=== PATIENT | female | born 1940 | race Caucasian/White ===

== ENCOUNTER 2016-10-19 12:31 | Inpatient (IN) | payer MEDICARE, OTHER ==
[~2016-10-19] VITALS: Ht 152.4 cm; Wt 68.4 kg
[~2016-10-19 12:31] MED LIST: ABILIFY10 MG PO; ABILIFY5 MG PO; ADVAIR DISK1 INH; ASPIRIN EC81 MG PO; ASPIRIN LOW DOS81 M2 PO; CLARITIN-D1 TA2 PO; CYMBALTA60 MG PO; DILAUDID 2MG2 MG/TA1 PO; HYDROCHLOROT12.5 MG PO; KEFLEX250 MG PO; KLONOPIN1 MG PO; LEVOTHYROXIN50 MCG PO; LORTAB 10-325 M1 TAB PO; LORTAB 5 PO; LYRICA50 MG PO; METO50TA52 PO; NITROSTAT0.4 MG SL; NORVASC PO; PRAVASTATIN10 MG PO; PRAVASTATIN20 MG PO; PROTONIX40 M2 PO; RECLAST5 MG/100 M IV; SEROQUEL50 MG OR; SEROQUEL50 MG PO; SPIRIVA RE2.5 MCG/AC IN; VENTOLIN HFA IN; WELLBUTRIN X1 PO; XANAX0.5 MG PO; [UNRECOGNIZED DRUG - CODE] PO; [UNRECOGNIZED DRUG - REMARK]
[2016-10-19 13:11] LABS: HEMATOCRIT 47.9 % (37.0-47.0); HEMOGLOBIN 15.3 g/dl (12.0-16.0); IMMATURE GRANULOCYTES 0.3 % (0.0-1.0); MEAN CELL VOLUME 100.6 fL CALC (80.0-100.0); MEAN CORPUSCULAR HGB 32.1 pG CALC (26.0-32.0); MEAN CORPUSCULAR HGB CONC 31.9 g/L CALC (32.0-36.0); NEUT# 13.59 thou/uL (2.00-7.15); RED BLOOD COUNT 4.76 mill/uL (4.20-5.60); RED CELL DISTRI WIDTH 14.6 % (11.5-15.5)
[2016-10-19 13:26] LABS: PROTHROMBIN TIME 10.8 SECONDS (9.0-12.5)
[2016-10-19 13:27] LABS: ALBUMIN 4.3 g/dL (3.2-5.0); BILIRUBIN, TOTAL 0.8 mg/dL (0.0-1.4); CREATININE 1.6 mg/dL (0.5-1.0); TOTAL PROTEIN 7.1 g/dL (6.3-8.2)
[2016-10-19 13:33] LABS: POTASSIUM 5.6 mmol/l (3.5-5.1)
[2016-10-19] MEDS ORDERED: PERCOCET1 TA2 PO (13:48)
[2016-10-19] MEDS ORDERED: LISINOPRIL10 M1 PO (13:58)
[2016-10-19] MEDS ORDERED: METRONIDAZOL500 MG PO (15:11)
[2016-10-19 15:23] LABS: URINE BLOOD DIPSTICK SMALL (NEGATIVE); URINE CLARITY CLEAR; URINE COLOR YELLOW; URINE GLUCOSE - DIPSTICK NEGATIVE (NEGATIVE); URINE KETONE 40 mg/dL (NEGATIVE); URINE LEUK ESTERASE NEGATIVE (NEGATIVE); URINE NITRITE - DIPSTICK NEGATIVE (Negative); URINE PH 6.5 (4.5-8.0); URINE PROTEIN - DIPSTICK 100 mg/dL (NEG-TRACE); URINE UROBILINOGEN - DIPSTICK 0.2 E.U./dL (0.2)
[2016-10-19 15:31] LABS: URINE BILIRUBIN - DIPSTICK SMALL (NEGATIVE)
[2016-10-19 15:33] LABS: BARBITURATES NEGATIVE (NEGATIVE); COCAINE NEGATIVE (NEGATIVE); METHADONE NEGATIVE (NEGATIVE); OXCYCODONE POSITIVE (NEGATIVE); TETRAHYDROCANNABIONOL NEGATIVE (NEGATIVE); TRICYLIC ANTIDEPRESSANTS NEGATIVE (NEGATIVE); URINE SQUAMOUS EPITHELIAL CELL FEW EPI/hpf (0-FEW)
[2016-10-19 18:00] VITALS: BP 160/89
[2016-10-19 23:54] VITALS: BP 146/78
[2016-10-20 04:12] VITALS: BP 152/81
[2016-10-20 05:34] LABS: HEMATOCRIT 44.4 % (37.0-47.0); HEMOGLOBIN 14.5 g/dl (12.0-16.0); IMMATURE GRANULOCYTES 0.7 % (0.0-1.0); MEAN CELL VOLUME 100.2 fL CALC (80.0-100.0); MEAN CORPUSCULAR HGB 32.7 pG CALC (26.0-32.0); MEAN CORPUSCULAR HGB CONC 32.7 g/L CALC (32.0-36.0); NEUT# 8.92 thou/uL (2.00-7.15); RED BLOOD COUNT 4.43 mill/uL (4.20-5.60); RED CELL DISTRI WIDTH 14.6 % (11.5-15.5)
[2016-10-20 05:46] LABS: ALBUMIN 3.6 g/dL (3.2-5.0); BILIRUBIN, TOTAL 0.7 mg/dL (0.0-1.4); CALCIUM 8.3 mg/dL (8.4-10.2); CREATININE 1.5 mg/dL (0.5-1.0); POTASSIUM 4.9 mmol/l (3.5-5.1); TOTAL PROTEIN 6.2 g/dL (6.3-8.2)
[2016-10-20 08:02] VITALS: BP 141/85
[2016-10-20 16:00] VITALS: BP 143/84
[2016-10-20 19:20] VITALS: BP 143/81
[2016-10-20 23:43] VITALS: BP 152/76
[2016-10-21 03:54] VITALS: BP 148/75
[2016-10-21 06:28] LABS: CALCIUM 8.6 mg/dL (8.4-10.2); CREATININE 1.4 mg/dL (0.5-1.0); POTASSIUM 4.8 mmol/l (3.5-5.1)
[2016-10-21 06:32] LABS: HEMATOCRIT 45.8 % (37.0-47.0); HEMOGLOBIN 15.8 g/dl (12.0-16.0); MEAN CELL VOLUME 100.7 fL CALC (80.0-100.0); MEAN CORPUSCULAR HGB 34.7 pG CALC (26.0-32.0); MEAN CORPUSCULAR HGB CONC 34.5 g/L CALC (32.0-36.0); RED BLOOD COUNT 4.55 mill/uL (4.20-5.60)
[2016-10-21 06:33] LABS: LYMPH% 13 % (15-41); MONO% 11 % (2-13); NEUT% 76 % (42-76); PLATELET COUNT 215 thou/uL (130-400); RED CELL DISTRI WIDTH 15.7 % (11.5-15.5)
[2016-10-21 08:18] VITALS: BP 140/83
[2016-10-21 12:30] VITALS: BP 138/84
[2016-10-21 16:00] VITALS: BP 143/75
[2016-10-21 20:16] VITALS: BP 146/82
[2016-10-21 23:36] VITALS: BP 146/84
[2016-10-22 04:25] VITALS: BP 151/83
[2016-10-22 08:09] VITALS: BP 134/68
[2016-10-22 09:07] LABS: CALCIUM 7.7 mg/dL (8.4-10.2); CREATININE 1.4 mg/dL (0.5-1.0)
[2016-10-22 11:13] VITALS: BP 136/72
[2016-10-22 14:34] VITALS: BP 140/75
[2016-10-22 21:01] VITALS: BP 133/76
[2016-10-23] VITALS (7 sets, daily range): BP systolic 120–143; BP diastolic 61–75
[2016-10-23 05:54] LABS: CALCIUM 7.3 mg/dL (8.4-10.2); CREATININE 1.3 mg/dL (0.5-1.0); POTASSIUM 4.1 mmol/l (3.5-5.1)
[2016-10-23 05:56] LABS: HEMATOCRIT 43.2 % (37.0-47.0); HEMOGLOBIN 14.1 g/dl (12.0-16.0); IMMATURE GRANULOCYTES 0.4 % (0.0-1.0); MEAN CELL VOLUME 98.9 fL CALC (80.0-100.0); MEAN CORPUSCULAR HGB 32.3 pG CALC (26.0-32.0); MEAN CORPUSCULAR HGB CONC 32.6 g/L CALC (32.0-36.0); NEUT# 7.15 thou/uL (2.00-7.15); RED BLOOD COUNT 4.37 mill/uL (4.20-5.60); RED CELL DISTRI WIDTH 14.6 % (11.5-15.5)
[2016-10-24 05:31] LABS: HEMATOCRIT 42.3 % (37.0-47.0); HEMOGLOBIN 13.8 g/dl (12.0-16.0); IMMATURE GRANULOCYTES 0.5 % (0.0-1.0); MEAN CELL VOLUME 99.1 fL CALC (80.0-100.0); MEAN CORPUSCULAR HGB 32.3 pG CALC (26.0-32.0); MEAN CORPUSCULAR HGB CONC 32.6 g/L CALC (32.0-36.0); NEUT# 7.3 thou/uL (2.00-7.15); RED BLOOD COUNT 4.27 mill/uL (4.20-5.60); RED CELL DISTRI WIDTH 14.6 % (11.5-15.5)
[2016-10-24 05:34] LABS: CALCIUM 7.2 mg/dL (8.4-10.2); CREATININE 1.3 mg/dL (0.5-1.0)
[2016-10-24 07:35] VITALS: BP 138/73
[2016-10-24] MEDS ORDERED: FLORASTOR250 M1 PO (11:20)
[2016-10-24] MEDS ORDERED: LOPRESSOR 550 MG/TAB PO (11:20)
[2016-10-24] MEDS ORDERED: VALTREX1 GM PO (11:38)
[2016-10-24 12:00] VITALS: BP 131/81
[2016-10-28 17:21] LABS: VARICELLA-ZOSTER IgG AB_i 321.4 Index (>=165.00)
== END 2016-10-24 16:04 | disposition home health service (06) | DRG 98 ==
LOC: ENPENDDIS → ED 12:31 → ED-I 16:55 → ED 17:19 → MS2 17:20
PROVIDERS: Emergency Medicine; Internal Medicine; Nurse Practitioner Family; ADMIT Internal Medicine; ATTEND Internal Medicine
PROC: 0T9B70Z Drainage of Bladder with Drainage Device, Via Natural or Artificial Opening (ICD-10-PCS; principal; 2016-10-19)
DX: B10.09 Other human herpesvirus encephalitis (principal); G93.1 Anoxic brain damage, not elsewhere classified; J96.11 Chronic respiratory failure with hypoxia; M62.82 Rhabdomyolysis; J44.9 Chronic obstructive pulmonary disease, unspecified; Z99.81 Dependence on supplemental oxygen; C67.9 Malignant neoplasm of bladder, unspecified; B00.2 Herpesviral gingivostomatitis and pharyngotonsillitis; I10 Essential (primary) hypertension; E03.9 Hypothyroidism, unspecified; M79.7 Fibromyalgia; G25.81 Restless legs syndrome; G89.29 Other chronic pain; M54.9 Dorsalgia, unspecified; Z98.84 Bariatric surgery status; F17.210 Nicotine dependence, cigarettes, uncomplicated; Z90.5 Acquired absence of kidney; F41.9 Anxiety disorder, unspecified; Z85.528 Personal history of other malignant neoplasm of kidney
CPT/HCPCS: G0378; J0133

== ENCOUNTER 2016-12-08 00:08 | Inpatient (IN) | payer MEDICARE, OTHER ==
[2016-12-08] VITALS (23 sets, daily range): BP systolic 86–143; BP diastolic 45–77
[~2016-12-08] VITALS: Ht 152.4 cm; Wt 64.0 kg
[~2016-12-08 00:08] MED LIST changes: +FLORASTOR250 M1 PO; +LISINOPRIL10 M1 PO; +LOPRESSOR 550 MG/TAB PO; +METRONIDAZOL500 MG PO; +PERCOCET1 TA2 PO; +VALTREX1 GM PO
--- NOTE | 2016-12-08 00:09 | NUR ---
PT WHEELED STRAIGHT BACK TO ROOM 8 AND TRIAGED. PT HAS WHEEZING AND RONCHI DIMINISHED BASES. PT HAS 02 ON FROM HOME AT 5 L BUT PT WEARS 4L NORMALLY. DAUGHTER UPPED ON WAY TO ER.
--- NOTE | 2016-12-08 00:10 | NUR ---
PT TO RM 10 VIA W/C.
--- NOTE | 2016-12-08 00:52 | NUR ---
PLACED OM BIPAP AFTER THE ABG RESULT.
[2016-12-08 00:56] LABS: HEMATOCRIT 47.3 % (37.0-47.0); HEMOGLOBIN 14.6 g/dl (12.0-16.0); IMMATURE GRANULOCYTES 0.5 % (0.0-1.0); MEAN CELL VOLUME 106.3 fL CALC (80.0-100.0); MEAN CORPUSCULAR HGB 32.8 pG CALC (26.0-32.0); MEAN CORPUSCULAR HGB CONC 30.9 g/L CALC (32.0-36.0); NEUT# 14.87 thou/uL (2.00-7.15); RED BLOOD COUNT 4.45 mill/uL (4.20-5.60); RED CELL DISTRI WIDTH 14.7 % (11.5-15.5)
--- NOTE | 2016-12-08 01:00 | NUR ---
PT ON BIPAP, SAT IMPROVING. DAUGHTER AT BEDSIDE. WAITING ON TEST RESULTS
[2016-12-08 01:10] LABS: URINE BILIRUBIN - DIPSTICK NEGATIVE (NEGATIVE); URINE BLOOD DIPSTICK NEGATIVE (NEGATIVE); URINE CLARITY CLEAR; URINE COLOR YELLOW; URINE GLUCOSE - DIPSTICK NEGATIVE (NEGATIVE); URINE KETONE NEGATIVE (NEGATIVE); URINE LEUK ESTERASE NEGATIVE (NEGATIVE); URINE NITRITE - DIPSTICK NEGATIVE (Negative); URINE PH 5.5 (4.5-8.0); URINE PROTEIN - DIPSTICK NEGATIVE (NEG-TRACE); URINE SPECIFIC GRAVITY 1.015; URINE UROBILINOGEN - DIPSTICK 0.2 E.U./dL (0.2)
[2016-12-08 01:15] LABS: ALBUMIN 4.4 g/dL (3.2-5.0); ALKALINE PHOSPHATASE 89 u/l (38-126); BILIRUBIN, TOTAL 0.6 mg/dL (0.0-1.4); BUN 38 mg/dL (8-23); BUN/CREATININE RATIO 21 (12-20 (CALC)); CALCIUM 8.5 mg/dL (8.4-10.2); CARBON DIOXIDE 20 mmol/l (22-30); CHLORIDE 104 mmol/l (95-108); CREATININE 1.8 mg/dL (0.5-1.0); GFR 28 ML/MIN (>=60 (CALC)); GFR FOR AFR.AMER. 33 ML/MIN (>=60 (CALC)); GLUCOSE 108 mg/dL (82-115); SGOT/AST 36 u/l (9-36); SGPT/ALT 40 u/l (11-66); SODIUM 138 mmol/l (137-146); TOTAL PROTEIN 7.7 g/dL (6.3-8.2)
[2016-12-08 01:20] LABS: ANION GAP 20 (6-22 (CALC)); POTASSIUM 5.6 mmol/l (3.5-5.1)
[2016-12-08 01:28] LABS: MYOGLOBIN 37 ng/mL (0 - 62)
--- NOTE | 2016-12-08 02:12 | NUR ---
NO REACTION TO ROCEPHIN, ZITHROMAX INFUSING AT THIS TIME. DAUGHTER STILL AT BEDSIDE.
[2016-12-08 02:58] LABS: PROTHROMBIN TIME 10.4 SECONDS (9.0-12.5)
--- NOTE | 2016-12-08 03:11 | NUR ---
ZITHROMAX COMPLETE, NO ADVERSE REACTION NOTED. REPEAT LACTIC ACID NEGATIVE. PT TO BE ADMITTED, WAITING ON ORDERS.
--- NOTE | 2016-12-08 03:32 | NUR ---
ADMIT ORDERS RECEIVED. ICU BUSY AND WILL CALL WHEN ABLE TO TAKE REPORT.
--- NOTE | 2016-12-08 04:00 | NUR ---
PT. NOW ICU PATIENT. PLACED ON ICU INPATIENT BED AT THIS TIME. ICU PROTOCOLS INITIATED AT THIS TIME.
--- NOTE | 2016-12-08 04:19 | NUR ---
PT SWITCHED TO HOSPITAL BED AND GONSALO OAKLEY STARTING ADMISSION PAPERS. PT'S TEMP 101.3 PT JUST GIVEN MORPHINE 2MG FOR CHRONIC BACK PAIN. WILL MONITOR TEMP.
--- NOTE | 2016-12-08 06:31 | NUR ---
PT. RESTING ON LT. SIDE. BIPAP REMAINS IN PLACE AT THIS TIME. SPO2 IS 91% ON 04/22 40%. RATE OF 14. HR STABLE, SINUS AT 69. BP SLIGHTLY HYPOTENSIVE AT 96 SYSTOLIC. MD MADE AWARE, NEW ORDERS RECEIVED.
--- NOTE | 2016-12-08 07:00 | NUR ---
REPORT RECEIVED FROM SIENNA. PT BEDRESTING WITH BIPAP IN USE. RECEIVING FLUID BOLUS-TOLERATING WELL. DAUGHTER AT BEDSIDE.
--- NOTE | 2016-12-08 07:17 | NUR ---
report called to GONSALO Betnon
--- NOTE | 2016-12-08 07:27 | NUR ---
TO MS2 VIA STRETCHER. ALERT. SLING IN PLACE ON LEFT ARM. HL IN TACT. N/C AT THIS TIME.
--- NOTE | 2016-12-08 07:30 | NUR ---
TO ICU VIA BED WITH ASSIST OF RT. TOLERATED WELL
--- NOTE | 2016-12-08 07:47 | NUR ---
PT ARRIVED TO FLOOR VIA BED ACCOMPANIED BY ED STAFF X 2. BIPAP SET UP BY RT JUSTIN. PT DRWOSY, BUT AROUSABLE. NS BOLUS INFUSING IN #20 LFA, BP 98/52, HR 71. DAUGHTER AT BEDSIDE. PLAN OF CARE DISCUSSED. WITH PT'S DAUGHTER. WILL CONTINUE TO MONITOR.
--- NOTE | 2016-12-08 09:00 | NUR ---
DR. HAWKINS IN TO SEE PT. PLAN OF CARE DISCUSSED WITH PT'S DAUGHTER AT BEDSIDE. PT SLEEPING.
--- NOTE | 2016-12-08 11:47 | NUR ---
PT SLEEPING AT THIS TIME. DAUGHTER ON PHONE TO BE UPDATED ON CONDITION, NOTIFIED OF NO CHANGE.
--- NOTE | 2016-12-08 13:00 | NUR ---
REPORT RECEIVED FROM GONSALO GRAVES. PT RESTING WITH EYES CLOSED, BIPAP IN PLACE SPO2 IS >92% BP IS 84/56. SR ON MONITOR. IV PATENT, INFUSING NS @100CC/H. COYLE CATHETER TO GRAVITY. CALL LIGHT WITHIN REACH. PT IS RESTING WITH EYES CLOSED. WILL CONTINUE TO MONITOR.
--- NOTE | 2016-12-08 14:00 | NUR ---
PT IS UNCHANGED SINCE PREVIOUS NOTE. VSS. WILL CONTINUE TO MONITOR.
--- NOTE | 2016-12-08 16:14 | NUR ---
PT REMAINS UNCHANGED FROM PRIOR NOTES. VSS, CALL LIGHT WITHIN REACH. WILL CONTINUE TO MONITOR.
--- NOTE | 2016-12-08 17:15 | NUR ---
FAMILY AT FOR UPDATE TO PLAN OF CARE. MD AND RT IN ROOM ALSO, PT AROUSABLE AND ALERT. BIPAP REMOVED AT THIS TIME. SP02 REMAINS UNCHANGED AT 95%. WILL CONTINUE TO MONITOR.
--- NOTE | 2016-12-08 18:55 | NUR ---
REPORT FROM GONSALO CHOU. ASSUMED PT. CARE.
--- NOTE | 2016-12-08 19:15 | NUR ---
PT. REPOSITIONED FOR COMFORT. LINENS CHANGED AT THIS TIME. PT. C/O BILATERAL LEG PAIN/CRAMPING. STATES SHE USUALLY TAKES LYRICA FOR THIS PAIN. PT. INFORMED THAT SHE WILL GET LYRICA IN ABOUT AN HOUR OR SO. RT CALLED FOR NEB TREATMENT. PT. AWAKE, ALERT, ORIENTED TO PERSON AND PLACE AT THIS TIME. DENIES COMPLAINTS OTHER THAN JOINT PAIN. WILL MEDICATE ORDERED.
--- NOTE | 2016-12-08 21:16 | NUR ---
RADIOLOGY AT BEDSIDE FOR PORTABLE CHEST.
--- NOTE | 2016-12-08 22:55 | NUR ---
PT. PLACED ON BIPAP AT THIS TIME BY RT THERAPY. PT. DENIES COMPLAINTS OR NEEDS AT THIS TIME. REPOSITIONED TO LT. SIDE FOR COMFORT. PT. VSS. REMAINS WITH SCANT CONGESTED UPPER RESP SOUNDS. CLEAR TO UPPERS BILAT AND SCANT RALES/CRACKLES/DIMINISHED TO BASES BILATERALLY. CALL LIGHT REMAINS WITHIN REACH.
[2016-12-09] VITALS (11 sets, daily range): BP systolic 107–133; BP diastolic 52–86
--- NOTE | 2016-12-09 00:15 | NUR ---
PT. REMOVED FROM BIPAP PER HER REQUEST. PLACED ON 4L NC AT THIS TIME. PROVIDED WITH WATER PER HER REQUEST. RESTING MUCH MORE COMFORTABLY IN BED AFTER REMOVAL FROM THE BIPAP. PT. UPPER RESP CONGESTION CLEARS WELL WITH FORCEFUL COUGHING. REMAINS AFEBRILE AND VSS. CALL LIGHT REMAINS WITHIN REACH AND PT. UTILIZING CALL CARMONA APPROPRIATELY.
--- NOTE | 2016-12-09 03:35 | NUR ---
PT. RESTING ON LT. SIDE IN NO DISTRESS. AROUSABLE TO LIGHT VERBAL STIMULI. DENIES COMPLAINTS OF PAIN OR NEED. MONTIEL. ROMEL. RESPS EVEN AND UNLABORED. SPO2 IS 93% ON 3L NC.
--- NOTE | 2016-12-09 05:15 | NUR ---
LAB AT BEDSIDE AT THIS TIME. ZITHROMAX INFUSING WITHOUT SX OF INFILTRATION OR EXTRAVASATION. MAE. URENA. VSS. WILL CONTINUE TO ASSESS. CALL LIGHT REMAINS WITHIN REACH.
[2016-12-09 05:47] LABS: HEMATOCRIT 33.9 % (37.0-47.0); IMMATURE GRANULOCYTES 0.6 % (0.0-1.0); MEAN CELL VOLUME 101.5 fL CALC (80.0-100.0); MEAN CORPUSCULAR HGB 32.9 pG CALC (26.0-32.0); MEAN CORPUSCULAR HGB CONC 32.4 g/L CALC (32.0-36.0); NEUT# 13.25 thou/uL (2.00-7.15); RED BLOOD COUNT 3.34 mill/uL (4.20-5.60); RED CELL DISTRI WIDTH 14.6 % (11.5-15.5)
[2016-12-09 06:12] LABS: CALCIUM 7.3 mg/dL (8.4-10.2); CREATININE 1.4 mg/dL (0.5-1.0); POTASSIUM 4.2 mmol/l (3.5-5.1)
--- NOTE | 2016-12-09 07:10 | NUR ---
PT LAYING BED RESTING WITH EYES CLOSED, AROUSES EASILY TO VERBAL STIMULI, PERRL, A & O X3, HR, 93, RESP. 20, BP 132/55, O2 95% ON 4L VIA NC, CLEAR LUNG SOUNDS IN RUL & COLE AND CRACKLES RML, RLL & LLL, 20G L FA IV WITH NS ORDERED AT PERSCRIBED RATE, COYLE REMAINS IN PLACE SECURED WITH CATH STRAP, STRONG RADIAL PULSES, WEAK PEDAL PULSES, AM ASSESSMENT COMPLETE, SEE INTERVENTIONS, SAFETY MEASURES REINFORCED, CALL CARMONA WITHIN REACH
--- NOTE | 2016-12-09 07:32 | NUR ---
SETUP ASSISTANCE PROVIDED WITH AM MEAL TRAYasmeen
--- NOTE | 2016-12-09 08:30 | NUR ---
DR HAWKINS AT BEDSIDE DISCUSSING PLAN OF CARE
--- NOTE | 2016-12-09 09:44 | NUR ---
P.T. AT BEDSIDE FOR EVAL
--- NOTE | 2016-12-09 09:46 | NUR ---
PT AMBULATED IN UNIT WITH P.T., TOLERATED WELL, CALL CARMONA WITHIN REACH
--- NOTE | 2016-12-09 11:30 | NUR ---
SETUP ASSISTANCE PROVIDED WITH LUNCH TRAY
--- NOTE | 2016-12-09 12:20 | NUR ---
PT SITTING UP IN BED TALKING TO VISITORS AT BEDSIDE, NO S/S OF DISTRESS, CALL CARMONA WITHIN REACH
--- NOTE | 2016-12-09 14:48 | NUR ---
PT LAYING IN BED RESTING WITH EYES CLOSED, AROUSES EASILY TO VERBAL STIMULI, RESP EVEN AND UNLABORED, REMINDED TO CALL FOR ASSISTANCE, CALL CARMONA WITHIN REACH
--- NOTE | 2016-12-09 16:35 | NUR ---
PT LAYING IN BED RESTING WITH EYES CLOSED, AROUSES EASILY TO VERBAL STIMULI, PT VERBALIZES NO COMPLAINTS, CALL CARMONA WITHIN REACH
--- NOTE | 2016-12-09 20:05 | NUR ---
AWAKE, ALERT, ORIENTED X 3. DAUGHTER AT BEDSIDE AT THIS TIME. SKIN WARM AND DRY. ROMLE. TIANA. HEMOPTYSIS. DR. AVLAREZ NOTIFIED. NEW ORDERS RECEIVED.
--- NOTE | 2016-12-09 20:45 | NUR ---
REPORT TO GONSALO LAURA.
--- NOTE | 2016-12-09 21:22 | NUR ---
PATIENT RECIEVED FROM ICU VIA BED WITH ICU STAFF IN ATTENDANCE. PATIENT IS ALERT AND ORIENTEDX3. PATIENT WITH HOB ELEVATED AND POSITIONED ON LEFT SIDE WITH ASSISTANCE OF PILLOWS, PATIENT WITH O2 VIA NASAL CANNULA IN PLACE AT 4LPM. PATIENT WITH COYLE CATH PATETN AND DRAINING CLEAR YELLOW URINE. PATIENT ORIENTED TO ROOM AND SURROUNDINGS INSTRUCTED PATIENT ON USE OF NURSE CALL LIGHT SYSTEM AND TV REMOTE. CALL LIGHT IN REACH.WILL CONT TO TO MONITOR.
--- NOTE | 2016-12-09 23:00 | NUR ---
IV SITE TO LEFT FOREARM IS LEAKING AT THE SITE. SITE D/C'ED AND NEW IV SITE STARTED TO RIGHT FOREARM-#22 GAUGE WITH GOOD BLOOD RETURN. PATIENT ASSISTED WITH REPOSITIONING. PATIENT MEDICATED WITH XANAX FOR ANXIETY AND SLEEP. PATIENT WITH WET COUGH WITH BLOOD TINGED SPUTUM. SAFETY PRECAUTIONS REINFORCED AND AND CALL LIGHT IN REACH. WILL CONT TO MONITOR.
--- NOTE | 2016-12-10 01:00 | NUR ---
PATIENT C/O FEELING TOO HOT-TEMP ADJUSTED AND FAN PROVIDED. PATIENT C/O LEG CRAMPING AND PAIN. ASKING FOR ANOTHER XANAX0-EXPLAINED THAT SHE JUST RECIEVED XANAX AT 2300 AND THAT IT WAS TOO EARLIER FOR ANOTHER DOSE. PROVIDED WITH WARM PACKS TO LEGS FOR COMFORT. WILL CONT TO MONITOR.
[2016-12-10 04:15] VITALS: BP 125/69
--- NOTE | 2016-12-10 05:00 | NUR ---
PATIENT CONT TO CALL FREQUENTLY ASKING FOR MORE XANAX. MEDICATED WILL XANAX 1MG PO. PATIENT WITH O2 VIA NASAL CANNULA INPLACE AT 4LPM. AZITHROMYCIN INFUSING ORDERED. COYLE PATENT AND DRAINING CLEAR YELLOW URINE. CALL LIGHT IN REACH. WILL CONT TO MONITOR.
[2016-12-10 05:58] LABS: HEMOGLOBIN 10.8 g/dl (12.0-16.0); IMMATURE GRANULOCYTES 1.6 % (0.0-1.0); MEAN CELL VOLUME 102.4 fL CALC (80.0-100.0); MEAN CORPUSCULAR HGB 32.5 pG CALC (26.0-32.0); MEAN CORPUSCULAR HGB CONC 31.8 g/L CALC (32.0-36.0); NEUT# 8.08 thou/uL (2.00-7.15); RED BLOOD COUNT 3.32 mill/uL (4.20-5.60)
[2016-12-10 06:20] LABS: CALCIUM 7.5 mg/dL (8.4-10.2); CREATININE 1.4 mg/dL (0.5-1.0); POTASSIUM 4.4 mmol/l (3.5-5.1)
--- NOTE | 2016-12-10 07:15 | NUR ---
PT RESTING WITH EYES CLOSED ON ROUNDS; NO S/SX OF DISTRESS NOTED; CALL CARMONA WITHIN REACH; WILL CONTINUE TO MONITOR.
[2016-12-10 07:36] VITALS: BP 123/64
--- NOTE | 2016-12-10 11:24 | NUR ---
COYLE REMOVED PER MD ORDER; EMPTIED 300 ML OF CLEAR YELLOW URINE; PT TOLERATED WELL; DENIES PAIN OR DISCOMFORT; CALL CARMONA WITHIN REACH; WILL CONTINUE TO MONITOR.
[2016-12-10] MEDS ORDERED: VANTIN200 M1 PO (13:36)
[2016-12-10] MEDS ORDERED: FLORASTOR250 M1 PO (13:36)
[2016-12-10] MEDS ORDERED: PREDNISONE10 MG PO (13:36)
[2016-12-10] MEDS ORDERED: ZITHROMAX500 MG PO (13:36)
--- NOTE | 2016-12-10 15:02 | NUR ---
Discharge instructions given. Patient verbalizes understanding of same. Discharged in stable condition via Wheelchair to Home with family. All belongings sent with pt.
--- NOTE | 2016-12-10 15:14 | NUR ---
PT REFUSED TO PARTICIPATE IN PHYSICAL THERAPY. STATES TAHT SHE HAD JUST RECEIVED XANAX THIS AM AND WAS STILL DROWSY AND TOO TIRED.
[2016-12-10] MEDS ORDERED: ALBUTEROL SUL0.083 % IN (19:31)
== END 2016-12-10 14:56 | disposition home health service (06) | DRG 189 ==
LOC: ENPENDDIS → ED 00:08 → ED-I 02:42 → ED 03:11 → ICU 03:12 → MS2 12-09 21:00
PROVIDERS: Emergency Medicine; ADMIT Internal Medicine; ATTEND Internal Medicine
PROC: 5A09357 Assistance with Respiratory Ventilation, Less than 24 Consecutive Hours, Continuous Positive Airway Pressure (ICD-10-PCS; principal; 2016-12-08)
PROC: 0T9B70Z Drainage of Bladder with Drainage Device, Via Natural or Artificial Opening (ICD-10-PCS; 2016-12-08)
DX: J96.21 Acute and chronic respiratory failure with hypoxia (principal); J18.9 Pneumonia, unspecified organism; N17.9 Acute kidney failure, unspecified; E87.2 Acidosis; N18.3 Chronic kidney disease, stage 3 (moderate); E87.5 Hyperkalemia; Z99.81 Dependence on supplemental oxygen; J44.1 Chronic obstructive pulmonary disease with (acute) exacerbation; J44.0 Chronic obstructive pulmonary disease with (acute) lower respiratory infection; J96.22 Acute and chronic respiratory failure with hypercapnia; I12.9 Hypertensive chronic kidney disease with stage 1 through stage 4 chronic kidney disease, or unspecified chronic kidney disease; G62.9 Polyneuropathy, unspecified; M19.90 Unspecified osteoarthritis, unspecified site; M79.7 Fibromyalgia; E03.9 Hypothyroidism, unspecified; G25.81 Restless legs syndrome; G89.29 Other chronic pain; M54.9 Dorsalgia, unspecified; Z85.528 Personal history of other malignant neoplasm of kidney; Z85.51 Personal history of malignant neoplasm of bladder; Z87.891 Personal history of nicotine dependence; Z98.84 Bariatric surgery status

== ENCOUNTER 2017-07-21 09:15 | Inpatient (IN) | payer MEDICARE, OTHER ==
[2017-07-21] VITALS (33 sets, daily range): BP systolic 96–180; BP diastolic 40–72
[~2017-07-21] VITALS: Ht 154.9 cm; Wt 75.7 kg
[~2017-07-21 09:15] MED LIST changes: +ALBUTEROL SUL0.083 % IN; +PREDNISONE10 MG PO; +VANTIN200 M1 PO; +ZITHROMAX500 MG PO
[2017-07-21 10:18] LABS: HEMATOCRIT 36.4 % (37.0-47.0); HEMOGLOBIN 11.1 g/dl (12.0-16.0); IMMATURE GRANULOCYTES 3.4 % (0.0-1.0); MEAN CORPUSCULAR HGB 30.5 pG CALC (26.0-32.0); MEAN CORPUSCULAR HGB CONC 30.5 g/L CALC (32.0-36.0); NEUT# 13.22 thou/uL (2.00-7.15); RED BLOOD COUNT 3.64 mill/uL (4.20-5.60)
[2017-07-21 10:34] LABS: ANION GAP 15 (6-22 (CALC)); BUN 30 mg/dL (8-23); BUN/CREATININE RATIO 20 (12-20 (CALC)); CARBON DIOXIDE 24 mmol/l (22-30); CHLORIDE 105 mmol/l (95-108); CREATININE 1.5 mg/dL (0.5-1.0); GFR 34 ML/MIN (>=60 (CALC)); GFR FOR AFR.AMER. 41 ML/MIN (>=60 (CALC)); LIPASE 28 u/l (23-300); POTASSIUM 4.6 mmol/l (3.5-5.1); SODIUM 139 mmol/l (137-146)
[2017-07-21] MEDS ORDERED: TIZANIDINE HCL2 M1 PO (10:37)
[2017-07-21] MEDS ORDERED: AMLODIPINE BESY10 MG PO (10:40)
[2017-07-21] MEDS ORDERED: VENTOLIN HFA IN (10:44)
[2017-07-21 11:28] LABS: URINE BILIRUBIN - DIPSTICK NEGATIVE (NEGATIVE); URINE BLOOD DIPSTICK NEGATIVE (NEGATIVE); URINE CLARITY CLEAR; URINE COLOR YELLOW; URINE GLUCOSE - DIPSTICK NEGATIVE (NEGATIVE); URINE KETONE NEGATIVE (NEGATIVE); URINE LEUK ESTERASE NEGATIVE (NEGATIVE); URINE NITRITE - DIPSTICK NEGATIVE (Negative); URINE PROTEIN - DIPSTICK NEGATIVE (NEG-TRACE); URINE UROBILINOGEN - DIPSTICK 0.2 E.U./dL (0.2)
[2017-07-22] VITALS (24 sets, daily range): BP systolic 54–149; BP diastolic 48–95
[2017-07-22 05:10] LABS: HEMATOCRIT 30.6 % (37.0-47.0); HEMOGLOBIN 9.5 g/dl (12.0-16.0); IMMATURE GRANULOCYTES 1.7 % (0.0-1.0); MEAN CELL VOLUME 97.5 fL CALC (80.0-100.0); MEAN CORPUSCULAR HGB 30.3 pG CALC (26.0-32.0); NEUT# 12.38 thou/uL (2.00-7.15); RED BLOOD COUNT 3.14 mill/uL (4.20-5.60)
[2017-07-22 05:23] LABS: CREATININE 1.5 mg/dL (0.5-1.0)
[2017-07-23] VITALS (21 sets, daily range): BP systolic 036–156; BP diastolic 49–78
[2017-07-23 04:33] LABS: HEMOGLOBIN 9.7 g/dl (12.0-16.0); MEAN CELL VOLUME 95.7 fL CALC (80.0-100.0); MEAN CORPUSCULAR HGB 29.9 pG CALC (26.0-32.0); MEAN CORPUSCULAR HGB CONC 31.3 g/L CALC (32.0-36.0); NEUT# 10.81 thou/uL (2.00-7.15); RED BLOOD COUNT 3.24 mill/uL (4.20-5.60); RED CELL DISTRI WIDTH 13.9 % (11.5-15.5)
[2017-07-23 04:37] LABS: BILIRUBIN, TOTAL 0.1 mg/dL (0.0-1.4); CREATININE 1.3 mg/dL (0.5-1.0); MAGNESIUM 1.9 mg/dL (1.6-2.3); POTASSIUM 4.4 mmol/l (3.5-5.1); TOTAL PROTEIN 4.8 g/dL (6.3-8.2)
[2017-07-23 04:38] LABS: ALBUMIN 2.5 g/dL (3.2-5.0)
[2017-07-23 05:10] LABS: IMMATURE GRANULOCYTES 5.2 % (0.0-1.0)
[2017-07-24] VITALS (10 sets, daily range): BP systolic 136–182; BP diastolic 53–100
[2017-07-24 04:42] LABS: CREATININE 1.5 mg/dL (0.5-1.0); POTASSIUM 4.5 mmol/l (3.5-5.1)
[2017-07-24 05:20] LABS: HEMATOCRIT 35.3 % (37.0-47.0); HEMOGLOBIN 11.1 g/dl (12.0-16.0); MEAN CELL VOLUME 95.7 fL CALC (80.0-100.0); MEAN CORPUSCULAR HGB 30.1 pG CALC (26.0-32.0); MEAN CORPUSCULAR HGB CONC 31.4 g/L CALC (32.0-36.0); RED BLOOD COUNT 3.69 mill/uL (4.20-5.60)
[2017-07-25] VITALS (11 sets, daily range): BP systolic 108–183; BP diastolic 53–92
[2017-07-25 05:25] LABS: HEMOGLOBIN 10.9 g/dl (12.0-16.0); MEAN CELL VOLUME 97.2 fL CALC (80.0-100.0); MEAN CORPUSCULAR HGB 30.3 pG CALC (26.0-32.0); MEAN CORPUSCULAR HGB CONC 31.1 g/L CALC (32.0-36.0); RED BLOOD COUNT 3.6 mill/uL (4.20-5.60); RED CELL DISTRI WIDTH 13.9 % (11.5-15.5)
[2017-07-25 05:27] LABS: CREATININE 1.6 mg/dL (0.5-1.0); POTASSIUM 4.5 mmol/l (3.5-5.1)
[2017-07-26] VITALS (7 sets, daily range): BP systolic 122–168; BP diastolic 58–87
[2017-07-26 06:26] LABS: CREATININE 1.5 mg/dL (0.5-1.0); POTASSIUM 4.4 mmol/l (3.5-5.1)
[2017-07-26 07:01] LABS: HEMATOCRIT 34.8 % (37.0-47.0); HEMOGLOBIN 10.8 g/dl (12.0-16.0); MEAN CELL VOLUME 97.2 fL CALC (80.0-100.0); MEAN CORPUSCULAR HGB 30.2 pG CALC (26.0-32.0); RED BLOOD COUNT 3.58 mill/uL (4.20-5.60); RED CELL DISTRI WIDTH 13.8 % (11.5-15.5)
[2017-07-26] MEDS ORDERED: AUGMENTIN875TAB PO (12:58)
[2017-07-26] MEDS ORDERED: PREDNISONE10 MG PO (12:58)
[2017-07-26] MEDS ORDERED: FLORASTOR250 M1 PO (12:58)
[2017-07-26] MEDS ORDERED: DOXYCYCL HYC100 MG PO (12:58)
== END 2017-07-26 13:50 | disposition home or self-care (01) | DRG 208 ==
LOC: ED 09:15 → ED-I 11:00 → ED 11:18 → ICU 11:19
PROVIDERS: Family Medicine; Nurse Practitioner Family; ADMIT Internal Medicine; ATTEND Internal Medicine
PROC: 0BH17EZ Insertion of Endotracheal Airway into Trachea, Via Natural or Artificial Opening (ICD-10-PCS; principal; 2017-07-21)
PROC: 5A1945Z Respiratory Ventilation, 24-96 Consecutive Hours (ICD-10-PCS; 2017-07-21)
PROC: 02HV33Z Insertion of Infusion Device into Superior Vena Cava, Percutaneous Approach (ICD-10-PCS; 2017-07-21)
PROC: 0T9B70Z Drainage of Bladder with Drainage Device, Via Natural or Artificial Opening (ICD-10-PCS; 2017-07-21)
DX: J96.21 Acute and chronic respiratory failure with hypoxia (principal); J18.9 Pneumonia, unspecified organism; J44.0 Chronic obstructive pulmonary disease with (acute) lower respiratory infection; N18.3 Chronic kidney disease, stage 3 (moderate); Z99.81 Dependence on supplemental oxygen; G40.909 Epilepsy, unspecified, not intractable, without status epilepticus; G62.9 Polyneuropathy, unspecified; J44.1 Chronic obstructive pulmonary disease with (acute) exacerbation; J96.22 Acute and chronic respiratory failure with hypercapnia; I12.9 Hypertensive chronic kidney disease with stage 1 through stage 4 chronic kidney disease, or unspecified chronic kidney disease; E03.9 Hypothyroidism, unspecified; G25.81 Restless legs syndrome; M79.7 Fibromyalgia; F41.9 Anxiety disorder, unspecified; G89.29 Other chronic pain; M54.9 Dorsalgia, unspecified; Z85.51 Personal history of malignant neoplasm of bladder; Z85.528 Personal history of other malignant neoplasm of kidney; Z98.84 Bariatric surgery status
CPT/HCPCS: J0692; S0164

== ENCOUNTER → 2018-02-17 | Outpatient (REF) | payer MEDICARE, OTHER ==
[~2018-02-17] MED LIST changes: +AMLODIPINE BESY10 MG PO; +AUGMENTIN875TAB PO; +CYANOCOBAL1000 MCG/M IM; +DOXYCYCL HYC100 MG PO; +TIZANIDINE HCL2 M1 PO; +VENTOLIN HFA PO
== END | disposition home or self-care (01) ==
LOC: LABSPEC 08:37
PROVIDERS: ATTEND Internal Medicine
DX: R05 Cough (principal)